=== PATIENT | female | born 1980 | race Caucasian/White ===

== ENCOUNTER → 2023-02-03 13:13 | Outpatient (CLI) | payer OTHER, SELFPAY ==
[2023-02-03 19:45] LABS: Add Manual Diff / Slide Review NO; Basophils Absolute Auto 0 /uL (0-100); Basophils Percent Auto 1.1 % (0-2); Eosinophils Absolute Auto 100 /uL (0-450); Eosinophils Percent Auto 2.4 % (2-4); Hematocrit 32.4 % (36-46); Hemoglobin 10.8 g/dL (12.0-16.0); Lymphocytes Absolute Auto 1300 /uL (1100-4500); Lymphocytes Percent Auto 29.5 % (25-40); Mean Corpuscular HGB Conc 33.4 % (30-36); Mean Corpuscular Hemoglobin 28.2 PG (26-34); Mean Corpuscular Volume 84.3 fL (80-100); Monocytes Absolute Auto 400 /uL (0-900); Monocytes Percent Auto 8.4 % (3-14); Neutrophils Absolute Auto 2600 /uL (1500-7000); Neutrophils Percent Auto 58.6 % (50-75); Platelet Count 207 X10^3/uL (150-400); Red Blood Cell Count 3.84 X10^6/uL (4.0-5.2); Red Cell Distribution Width 16.5 % (11.6-14.8); White Blood Cell Count 4.4 X10^3/uL (4.5-11.0)
[2023-02-03 19:54] LABS: Alanine Aminotransferase 16 IU/L (<35); Albumin 4.2 g/dL (3.5-5.0); Albumin Globulin Ratio 1.4 (1.0-2.8); Alkaline Phosphatase 50 U/L (38-126); Aspartate Aminotransferase 22 IU/L (14-36); BUN Creatinine Ratio 8.5 (6-22); Bilirubin Total 0.6 mg/dL (0.2-1.3); Blood Urea Nitrogen 5 mg/dL (7-17); Calcium 8.9 mg/dL (8.4-10.2); Carbon Dioxide 24 mmol/L (22-32); Chloride 105 mmol/L (98-107); Estimated Glomerular Filt Rate > 60 mL/min (>60); Glucose 87 mg/dL (70-100); HEMOLYSIS < 15 (0-50); Potassium 3.7 mmol/L (3.4-5.1); Sodium 136 mmol/L (137-145); Total Protein 7.2 g/dL (6.3-8.2)
[2023-02-03 19:55] LABS: Erythrocyte Sedimentation Rate 4 MM/HR (0-20)
[2023-02-03 20:03] LABS: Free T3, Triiodothyronine Free 4.31 pg/mL (2.77-5.27); Free T4, Direct Thyroxine 0.99 ng/dL (0.78-2.19)
[2023-02-03 20:17] LABS: Thyroid Stimulating Hormone 1.66 uIU/mL (0.47-4.68)
[2023-02-03 20:20] LABS: Ferritin 6 ng/mL (6-137)
[2023-02-03 20:35] LABS: Vitamin B12 473 pg/mL (239-931)
[2023-02-05 04:59] LABS: Immunoglobulin A 103 mg/dL (87-352)
[2023-02-05 08:36] LABS: EBV Ab VCA, IgG >600.0 U/mL (0.0-17.9); EBV Early Antigen AB,IgG >150.0 U/mL (0.0-8.9); EBV Virus IgG Ab > 600.0 U/mL (0.0-17.9); EBV Virus IgM Ab 67.4 U/mL (0.0-35.9)
[2023-02-05 18:26] LABS: Deamidated Gliadin Ab IgA 5 units (0-19); Deamidated Gliadin Ab IgG 14 units (0-19); Immunoglobulin A,Qn 107 mg/dL (87-352); t-Transglutaminase IgA <2 U/mL (0-3)
[2023-02-13 15:24] LABS: Testosterone % Fr + Wkly bound 9.8 % (3.0-18.0); Testosterone Fr+Wkly bound 3.2 ng/dL (0.0-9.5); Testosterone, Total 32.2 ng/dL (.)
== END ==
PROVIDERS: Naturopath; PCP Physician Assistant
DX: K59.00 Constipation, unspecified (principal); R53.81 Other malaise; D64.9 Anemia, unspecified; R53.83 Other fatigue; R61 Generalized hyperhidrosis; R68.82 Decreased libido
CPT/HCPCS: 80053; 82607; 82627; 82728; 82784; 83516; 84403; 84439; 84443; 84481; 85025; 85651; 86663; 86664; 86665; 86738

== ENCOUNTER → 2023-04-26 12:11 | Outpatient (CLI) | payer OTHER, SELFPAY ==
[2023-04-26 19:33] LABS: HEMOLYSIS < 15 (0-50); Iron 150 ug/dL (37-170)
[2023-04-26 19:37] LABS: Add Manual Diff / Slide Review NO; Basophils Absolute Auto 100 /uL (0-100); Basophils Percent Auto 0.9 % (0-2); Eosinophils Absolute Auto 100 /uL (0-450); Eosinophils Percent Auto 1.8 % (2-4); Hematocrit 37.6 % (36-46); Hemoglobin 12.7 g/dL (12.0-16.0); Lymphocytes Absolute Auto 1700 /uL (1100-4500); Lymphocytes Percent Auto 28.5 % (25-40); Mean Corpuscular HGB Conc 33.6 % (30-36); Mean Corpuscular Hemoglobin 29.7 PG (26-34); Mean Corpuscular Volume 88.3 fL (80-100); Monocytes Absolute Auto 400 /uL (0-900); Monocytes Percent Auto 7.7 % (3-14); Neutrophils Absolute Auto 3600 /uL (1500-7000); Neutrophils Percent Auto 61.1 % (50-75); Platelet Count 191 X10^3/uL (150-400); Red Blood Cell Count 4.26 X10^6/uL (4.0-5.2); Red Cell Distribution Width 21.3 % (11.6-14.8); White Blood Cell Count 5.8 X10^3/uL (4.5-11.0)
[2023-04-26 19:45] LABS: Percent Iron Saturation 39 % (15-50); Total Iron Binding Capacity 388 ug/dL (265-497); Transferrin 297 mg/dL (206-381)
[2023-04-26 19:59] LABS: Anisocytosis 1+
[2023-04-26 20:09] LABS: Ferritin 39 ng/mL (6-137)
== END ==
PROVIDERS: PCP Physician Assistant; Visit Provider Naturopath
DX: D50.9 Iron deficiency anemia, unspecified (principal)
CPT/HCPCS: 82728; 83540; 83550; 85025